=== PATIENT | female | born 1950 | race African-American/Black ===

== ENCOUNTER 2017-01-18 09:02 | Outpatient (CLI) | payer MEDICARE ==
--- NOTE | 2017-01-18 10:57 | XRay Report ---
ROUTINE CHEST, TWO VIEWS: HISTORY: Cough. The trachea, heart, mediastinal contour, lung aldana and bony thorax are unremarkable. IMPRESSION: Unremarkable chest x-ray.
--- NOTE | 2017-01-18 10:58 | XRay Report ---
RIGHT SHOULDER: History: Right shoulder pain. Findings: There is borderline bone mineralization. Mild osteoarthritic changes are identified. No evidence for fracture, dislocation, ligamentous injury or bone lesion. Chronic appearing right lateral fifth rib deformity is noted. IMPRESSION: Osteoarthritic changes. No acute process.
--- NOTE | 2017-01-18 11:00 | XRay Report ---
CERVICAL SPINE, 5 views: History: Neck pain. Osteopenia is noted. Mild to moderate multilevel degenerative disc disease and facet arthropathy are identified. C5-6 appears to be the most affected level. No evidence for displaced fracture or bone lesion. The prevertebral soft tissues are normal thickness. The oblique images demonstrate moderate to severe bilateral neural foraminal narrowing at C6-7. IMPRESSION: Osteopenia. Cervical spondylosis as described. No acute process is noted.
--- NOTE | 2017-01-18 14:28 | Mammography Report ---
BILATERAL DIGITAL SCREENING MAMMOGRAM with CAD: 01/18/17 09:02:00 CLINICAL: Baseline screening. FINDINGS: The breasts are predominantly fatty with a few bilateral scattered areas of fibroglandular density.No mass, architectural distortion or suspicious calcifications. IMPRESSION: No mammographic evidence of malignancy. BI-RADS CATEGORY: 1 -- Negative RECOMMENDATION: Routine mammographic screening in one year. COMMENT: Patient follow-up letters are generated by our [employer] application.
== END 2017-01-18 09:03 | disposition home or self-care (01) ==
LOC: MAMMO 09:02
PROVIDERS: ATTEND Internal Medicine
DX: Z12.31 Encounter for screening mammogram for malignant neoplasm of breast (principal); M47.892 Other spondylosis, cervical region; M85.88 Other specified disorders of bone density and structure, other site; M50.322 Other cervical disc degeneration at C5-C6 level; M12.88 Other specific arthropathies, not elsewhere classified, other specified site; M25.511 Pain in right shoulder; R05 Cough
CPT/HCPCS: 71020; 72050; 73030; G0202; 77067

== ENCOUNTER 2020-12-16 10:44 | Emergency (ER) | payer MEDICARE ==
--- NOTE | 2020-12-16 11:14 | Emergency Department Report ---
ED General Adult HPI - General Chief complaint: Tube Replacement Stated complaint: PULLED TRACH OUT Time Seen by Provider: 12/16/20 11:01 Source: EMS Mode of arrival: Stretcher Limitations: Language Barrier, Physical Limitation - History of Present Illness Initial comments: This is a 70-year-old female who dislodged her tracheostomy tube I am told for the fourth time, this time in the custodial. She has been recently discharged from the hospital. She had intubation due to respiratory failure secondary to COVID-19 pneumonia. Tracheostomy was required. On arrival of the tracheostomy tube was replaced by respiratory therapist. The charge nurse called Dr. Bautista the patient multimedia services coordinator/rope laying machine operator recommended that we remove the tracheostomy tube and observe the patient. If the patient does not develop respiratory distress or hypoxia, he recommended discharge to the custodial. 12/09/20 Chest x-ray IMPRESSION: 1. Interval development of left mid and lower lobe pulmonary opacity may represent developing infectious process. 2. Coarsened interstitial lung markings bilaterally likely represent chronic interstitial lung disease and are unchanged from prior exam. 3. Medical devices are in stable position. Current chest x-ray showed no evidence of acute process or interval change. -: Sudden Severity scale (0 -10): 0 - Related Data Home Medications Medication Instructions Recorded Confirmed Last Taken Calcium Carbonate/Vitamin D3 1 each PO BID 10/18/20 10/18/20 Unknown [Calcium 500-Vit D3 400 Tablet] Ferrous Sulfate [Ferrous Sulfate 220 mg PO DAILY 10/18/20 10/18/20 Unknown 220 MG/5 ML] Ipratropium/Albuterol Sulfate 1 ampul IH Q6HR 10/18/20 10/18/20 Unknown [DUONEB *Not for PRN Use*] Previous Rx's Medication Instructions Recorded Last Taken Type Simvastatin (Nf) [Zocor TAB] 20 mg PO QHS #30 tablet 05/04/14 05/11/14 10:00 Rx Ascorbic Acid [Vitamin C] 500 mg PO BID tablet 12/14/20 Unknown Rx Insulin Glargine [Lantus VIAL] 5 units SUB-Q QHS units 12/14/20 Unknown Rx Lansoprazole Solutab [Prevacid 30 mg FEEDTUBE BID tab.rapdis 12/14/20 Unknown Rx Solutab] Metoprolol [Lopressor TAB] 100 mg PO BID tablet 12/14/20 Unknown Rx QUEtiapine [SEROquel] 25 mg PO QHS tablet 12/14/20 Unknown Rx cloNIDine-TTS PATCH [Catapres-Tts 0.1 mg TD Th patch 12/14/20 Unknown Rx 0.1MG Patch] clonazePAM [KlonoPIN] 0.5 mg PO Q8H #10 tablet 12/14/20 Unknown Rx levETIRAcetam [Keppra] 500 mg PO BID oral.liqd 12/14/20 Unknown Rx oxyCODONE /ACETAMINOPHEN [Percocet 1 tab PO Q6H PRN #10 tablet 12/14/20 Unknown Rx 5/325 mg] polyethylene glycoL 3350 [Miralax 17 gm FEEDTUBE QDAY powd.pack 12/14/20 Unknown Rx 3350] cefUROXime [Ceftin] 250 mg PO Q12H #10 tablet 12/16/20 Unknown Rx Allergies Allergy/AdvReac Type Severity Reaction Status Date / Time No Known Allergies Allergy Unverified 05/01/14 10:31 ED Review of Systems ROS: Stated complaint: PULLED TRACH OUT Other details as noted in HPI Comment: Unobtainable due to pts medical conditions ED Past Medical Hx - Past Medical History Hx Hypertension: Yes (previously on pressors but HD stable off pressors) Hx Heart Attack/AMI: No (cardiac arrest this admission) Hx Diabetes: Yes Hx Deep Vein Thrombosis: (unknown) Hx Renal Disease: Yes (SIDRA) Hx HIV: No Additional medical history: stroke last week 05/2014. high cholesterol taking no medications. Family states admitted for 1 week due to unknown problem with uterus. No apparent follow-up or medications. - Surgical History Hx Pacemaker: No Hx Internal Defibrillator: No Additional Surgical History: unknown - Social History Smoking Status: Unknown if ever smoked Other Social History: skilled nursing resident - Medications Home Medications: Home Medications Medication Instructions Recorded Confirmed Last Taken Type Simvastatin (Nf) [Zocor TAB] 20 mg PO QHS #30 tablet 05/04/14 12/15/20 05/11/14 10:00 Rx Calcium Carbonate/Vitamin D3 1 each PO BID 10/18/20 10/18/20 Unknown History [Calcium 500-Vit D3 400 Tablet] Ferrous Sulfate [Ferrous Sulfate 220 mg PO DAILY 10/18/20 10/18/20 Unknown Histo ry 220 MG/5 ML] Ipratropium/Albuterol Sulfate 1 ampul IH Q6HR 10/18/20 10/18/20 Unknown History [DUONEB *Not for PRN Use*] Ascorbic Acid [Vitamin C] 500 mg PO BID tablet 12/14/20 Unknown Rx Insulin Glargine [Lantus VIAL] 5 units SUB-Q QHS units 12/14/20 Unknown Rx Lansoprazole Solutab [Prevacid 30 mg FEEDTUBE BID tab.rapdis 12/14/20 Unknown Rx Solutab] Metoprolol [Lopressor TAB] 100 mg PO BID tablet 12/14/20 Unknown Rx QUEtiapine [SEROquel] 25 mg PO QHS tablet 12/14/20 Unknown Rx cloNIDine-TTS PATCH [Catapres-Tts 0.1 mg TD Th patch 12/14/20 Unknown Rx 0.1MG Patch] clonazePAM [KlonoPIN] 0.5 mg PO Q8H #10 tablet 12/14/20 Unknown Rx levETIRAcetam [Keppra] 500 mg PO BID oral.liqd 12/14/20 Unknown Rx oxyCODONE /ACETAMINOPHEN [Percocet 1 tab PO Q6H PRN #10 tablet 12/14/20 Unknown Rx 5/325 mg] polyethylene glycoL 3350 [Miralax 17 gm FEEDTUBE QDAY powd.pack 12/14/20 Unknown Rx 3350] cefUROXime [Ceftin] 250 mg PO Q12H #10 tablet 12/16/20 Unknown Rx ED Physical Exam - General Limitations: Language Barrier, Physical Limitation General appearance: alert - Head Head exam: Present: atraumatic - Eye Eye exam: Absent: scleral icterus - ENT ENT exam: Present: mucous membranes moist - Neck Neck exam: Present: other (Tracheostomy in place) - Respiratory Respiratory exam: Absent: normal lung sounds bilaterally, respiratory distress - Cardiovascular Cardiovascular Exam: Present: regular rate, normal rhythm. Absent: systolic murmur, diastolic murmur, rubs, gallop - GI/Abdominal GI/Abdominal exam: Present: soft, normal bowel sounds. Absent: distended, tenderness - Extremities Exam Extremities exam: Absent: pedal edema - Neurological Exam Neurological exam: Present: other (No acute focal deficit) - Psychiatric Psychiatric exam: Present: normal affect, normal mood - Skin Skin exam: Present: warm, dry ED Course Vital Signs 03/12/16/20 12/16/20 11:03 11:46 12:01 Temperature 97.7 F Pulse Rate 84 84 Respiratory 18 25 H Rate Blood Pressure 122/71 Blood Pressure 134/73 [Left] O2 Sat by Pulse 98 96 99 Oximetry 12/16/20 12:15 Temperature Pulse Rate 85 Respiratory 22 Rate Blood Pressure 130/67 Blood Pressure [Left] O2 Sat by Pulse 98 Oximetry - Reevaluation(s) Reevaluation #1: Patient's labs were indicative of prerenal azotemia. He will be given a liter of normal saline and then returned to the custodial. Her airway remained patent and she did not desaturate. 12/16/20 13:54 Reevaluation #2: I did note that the patient had 25 white blood cells and her last urine on the fifth. Looks like the culture was negative. However I am going to give her 1 dose of empiric antibiotics now considering her slightly elevated white blood cell count and anion gap of 20. We will try to reculture her urine. 12/16/20 13:58 ED Medical Decision Making - Lab Data Result diagrams: 12/16/20 11:42 12/16/20 11:42 Laboratory Results - last 24 hr 12/16/20 12/16/20 12/16/20 11:42 11:42 12:50 WBC 11.3 H RBC 3.07 L Hgb 9.7 L Hct 29.0 L MCV 94 MCH 32 MCHC 33 RDW 16.5 H Plt Count 242 Lymph % (Auto) Open Developer Operator [place] % (Auto) Open Developer Operator Eos % (Auto) Open Developer Operator Baso % (Auto) Open Developer Operator Lymph # (Auto) Open Developer Operator [place] # (Auto) Open Developer Operator Eos # (Auto) Open Developer Operator Baso # (Auto) Open Developer Operator Seg Neutrophils % Open Developer Operator Seg Neutrophils # Open Developer Operator PT 12.0 L INR 0.90 APTT 32.7 Sodium 134 L Potassium 4.5 Chloride 99.3 Carbon Dioxide 19 L D Anion Gap 20 BUN 30 H Creatinine 0.6 Estimated GFR > 60 BUN/Creatinine Ratio 50 Glucose 160 H Calcium 9.7 Magnesium 2.30 Total Bilirubin 0.40 Direct Bilirubin < 0.2 Indirect Bilirubin 0.2 AST 36 ALT 21 Alkaline Phosphatase 105 NT-Pro-B Natriuret Pep 678.0 Total Protein 8.2 Albumin 3.4 L Albumin/Globulin Ratio 0.7 - Radiology Data Radiology results: report reviewed IMPRESSION: The tracheostomy is absent, otherwise, no change since 12/09/2020. Signer Name: Drew Aguirre Jr, MD Critical care attestation.: If time is entered above; I have spent that time in minutes in the direct care of this critically ill patient, excluding procedure time. ED Disposition Clinical Impression: Tracheostomy malfunction, Prerenal azotemia Disposition: DC-01 TO HOME OR SELFCARE Is pt being admited?: No Does the pt Need Aspirin: No Condition: Stable Additional Instructions: Urine culture pending. Increase fluids. Patient found to be somewhat dehydrated. Rx Ceftin. Prescriptions: cefUROXime [Ceftin] 250 mg PO Q12H #10 tablet Referrals: PRIMARY CARE, [Primary Care Provider] - 3-5 Days
--- NOTE | 2020-12-16 12:05 | XRay Report ---
CHEST 1 VIEW INDICATION: dislodged trach, BREANN. COMPARISON: 12/09/2020 FINDINGS: Support devices: Tracheostomy has been removed since the previous exam Heart: Within normal limits. Lungs/Pleura: There are scattered airspace opacities in the lingular region which are unchanged. Othe rwise the lungs are clear. No pleural effusion or pneumothorax. Additional findings: None. IMPRESSION: The tracheostomy is absent, otherwise, no change since 12/09/2020. Signer Name: Drew Aguirre Jr, MD Signed: 12/16/2020 12:00 PM Workstation Name: [id number]
[2020-12-16 13:20] LABS: Hemoglobin 9.7 gm/dl (10.1-14.3); Mean Corpuscular HGB Conc 33 % (30-34); Mean Corpuscular Volume 94 fl (79-97); Red Blood Count 3.07 M/mm3 (3.65-5.03); Red Cell Distribution Width 16.5 % (13.2-15.2)
[2020-12-16 13:22] LABS: Platelet Count 242 K/mm3 (140-440)
[2020-12-16 13:23] LABS: INR 0.9 (0.87-1.13); Partial Thromboplastin Time 32.7 Sec. (24.2-36.6)
[2020-12-16 13:31] LABS: Alanine Aminotransferase 21 units/L (7-56); Albumin 3.4 g/dL (3.9-5); BUN/Creatinine Ratio 50; Bilirubin,Direct < 0.2 mg/dL (0-0.2); Blood Urea Nitrogen 30 mg/dL (7-17); Calcium 9.7 mg/dL (8.4-10.2); Hemolysis Index 62
[2020-12-16] MEDS ORDERED: SODIUM CHLORIDE 0.9% 1000 ML 1,000 ML IV ONE (13:53)
[2020-12-16] MEDS ORDERED: cefTRIAXone/NS 1 GM/50 ML 1 GM/50 ML BAG IV ONE (13:56)
[2020-12-16 14:23] LABS: Total Cells Counted 100
[2020-12-16 14:25] LABS: Platelet Estimate Consistent w Auto; Poikilocytosis Few
[2020-12-16 19:50] VITALS: BP 144/69
== END 2020-12-16 19:40 | disposition home or self-care (01) ==
LOC: ED 10:44
DX: J95.03 Malfunction of tracheostomy stoma (principal); R79.89 Other specified abnormal findings of blood chemistry; I10 Essential (primary) hypertension; E11.9 Type 2 diabetes mellitus without complications; Z79.899 Other long term (current) drug therapy
CPT/HCPCS: 36415; 71045; 80048; 80076; 83735; 83880; 85007; 85025; 85610; 85730; 96365; 99284; J0696; J7030